=== PATIENT | female | born 1985 | race Caucasian/White ===

== ENCOUNTER 2024-08-26 19:54 | Inpatient (IN) | payer BC, SELFPAY ==
[~2024-08-26 19:54] MED LIST: Bupivacaine 0.25% HCL 30 ML VIAL ONE
[2024-08-26] MEDS ORDERED: Methylergonovine 0.2 MG/ML VIAL IM PRN (20:16)
[2024-08-26] MEDS ORDERED: Lidocaine 1% (PF) 30 ML VIAL SC PRN (20:16)
[2024-08-26] MEDS ORDERED: Oxytocin 30 units/NS 500 ML 500 ML IV SCH (20:16)
[2024-08-26] MEDS ORDERED: Tranexamic Acid 1,000 MG/10 ML VIAL IVP PRN (20:16)
[2024-08-26] MEDS ORDERED: Acetaminophen 500 MG TAB PO PRN (20:16)
[2024-08-26] MEDS ORDERED: HYDROcodone/Acetaminophen 5/325 mg Tablet PO PRN ×2 (20:16)
[2024-08-26] MEDS ORDERED: Lactated Ringer's 1,000 ML IV SCH (20:16)
[2024-08-26] MEDS ORDERED: Carboprost 250 MCG/ML AMP IM PRN (20:16)
[2024-08-26] MEDS ORDERED: hydrALAZINE 20 MG/ML VIAL SLOW IVP PRN (20:16)
[2024-08-26] MEDS ORDERED: Misoprostol 200 MCG TAB PR PRN (20:16)
[2024-08-26] MEDS ORDERED: fentaNYL 50 mcg/mL 1 mL Vial SLOW IVP PRN (20:16)
[2024-08-26] MEDS ORDERED: Diphenoxylate HCl/Atropine Tablet PO PRN ×2 (20:16)
[2024-08-26] MEDS ORDERED: Ondansetron PF 4 MG/2 ML Vial IVP PRN (20:16)
[2024-08-26] MEDS ORDERED: Promethazine HCl 25 MG/ML VIAL IM PRN (20:16)
[2024-08-26 20:19] VITALS: BMI 34.3
[2024-08-26 20:52] LABS: Hematocrit 35.7 % (34.9-44.5); Hemoglobin 12.9 g/dL (12.0-15.5); Mean Corpuscular HGB CONC 36.1 g/dL (32.0-36.0); Mean Corpuscular Hemoglobin 34.5 pg (27.0-33.0); Mean Corpuscular Volume 95.5 fL (81.6-98.3); Mean Platelet Volume 12.3 fL (7.4-10.4); Platelet Count 109 10x3/uL (150-450); RBC Distribution Width 13.3 % (11.5-14.5); Red Blood Cell (RBC) Count 3.74 10x6/uL (3.90-5.03); White Blood Cell (WBC) Count 8.7 10x3/uL (3.5-10.5)
[2024-08-26] MEDS: Misoprostol 100 MCG TAB VAG SCH (21:32)
[2024-08-26 22:51] LABS: Syphilis Antibody Nonreactive (Nonreactive); Syphilis Antibody Index 0.05 S/CO (<1.00 Non-Reactive)
[2024-08-26 22:52] LABS: HBsAg Index 0.22 S/CO (0-0.99); Hep B Surf Ag - L&D Non-Reactive S/CO (NonReactive)
[2024-08-26] MEDS: Calcium Carbonate 500 MG ChewTAB PO SCH (23:28)
[2024-08-27] MEDS: fentaNYL/Ropivacaine Epidural 100 ML ONE (02:35)
[2024-08-27] MEDS ORDERED: Naloxone HCl 0.4 mg/ml Vial IVP PRN ×4 (02:56→10:51)
[2024-08-27] MEDS ORDERED: Ondansetron PF 4 MG/2 ML Vial IVP PRN ×3 (02:56→10:51)
[2024-08-27] MEDS ORDERED: Acetaminophen 325 MG TAB PO PRN (02:56)
[2024-08-27] MEDS ORDERED: Promethazine HCl 25 MG/ML VIAL IM PRN ×2 (02:56→10:51)
[2024-08-27] MEDS ORDERED: Lactated Ringer's 500 ML IV PRN (02:56)
[2024-08-27] MEDS ORDERED: Moisturizing Cream (Eucerin) 113 GM JAR TOP PRN ×2 (02:56→10:51)
[2024-08-27] MEDS ORDERED: diphenhydrAMINE 50 MG/ML VIAL IVP PRN ×2 (02:56→10:51)
[2024-08-27] MEDS ORDERED: fentaNYL 2 mcg/Ropivacaine 0.2% Epidural 100 ML CADD EPIDURAL SCH (03:00)
[2024-08-27] MEDS ORDERED: Communication Order-Pharmacy FS SCH ×2 (03:00→11:00)
[2024-08-27] MEDS: Oxytocin 30 units/NS 500 ML 500 ML IV SCH (06:46)
[2024-08-27] MEDS ORDERED: Lanolin Ointment 7 GM TUBE TOP PRN (10:04)
[2024-08-27] MEDS ORDERED: Bisacodyl 10 MG SUPP PR PRN (10:04)
[2024-08-27] MEDS ORDERED: HYDROmorphone 0.5 MG/0.5 ML SYRINGE SLOW IVP PRN (10:51)
[2024-08-27] MEDS ORDERED: Meperidine HCl/PF 25 MG (1 mL) VIAL SLOW IVP PRN (10:51)
[2024-08-27] MEDS ORDERED: fentaNYL 50 mcg/mL 1 mL Vial SLOW IVP PRN (10:51)
[2024-08-27] MEDS: ePHEDrine Sulfate 50 MG/10 ML VIAL SLOW IVP PRN (11:52)
[2024-08-27] MEDS: Clindamycin/D5W 900 mg/50 ml Premix Bag ONE (15:19)
[2024-08-27] MEDS: Azithromycin 500 MG VIAL ONE (15:19)
[2024-08-27] MEDS: CEFAZOLIN 2 GM VIAL ONE (15:19)
[2024-08-27] MEDS: Hepatitis B Vaccine 10 MCG/0.5 ML SYR ONE (15:20)
[2024-08-27] MEDS: Erythromycin Base 0.5% Oint 1 GM TUBE ONE (15:20)
[2024-08-27] MEDS: Morphine PF 10 MG/10 ML VIAL ONE (15:20)
[2024-08-27] MEDS: Dexmedetomidine 200 MCG/2 ML VIAL ONE (15:20)
[2024-08-27] MEDS: Ondansetron PF 4 MG/2 ML Vial ONE (15:20)
[2024-08-27] MEDS: PHENYLEPHRINE-NS 100 MCG/ML 10 ML SYRINGE ONE (15:20)
[2024-08-27] MEDS: Oxytocin 10 UNITS/ML VIAL ONE ×2 (15:20)
[2024-08-27] MEDS: Phytonadione Neonatal 1 MG/0.5 ML AMP ONE (15:21)
[2024-08-27] MEDS: Ferrous Sulfate 325 MG TAB PO SCH (21:16)
[2024-08-27] MEDS: HYDROcodone/Acetaminophen 7.5/325 mg Tablet PO PRN (21:16)
[2024-08-27] MEDS: Docusate 100 MG CAP PO SCH (21:16)
[2024-08-28] MEDS: Simethicone Chewable 80 MG TAB PO PRN (03:21)
[2024-08-28 04:11] LABS: Hematocrit 27.2 % (34.9-44.5); Mean Corpuscular HGB CONC 33.1 g/dL (32.0-36.0); Mean Corpuscular Hemoglobin 32.3 pg (27.0-33.0); Mean Corpuscular Volume 97.5 fL (81.6-98.3); RBC Distribution Width 13.5 % (11.5-14.5); Red Blood Cell (RBC) Count 2.79 10x6/uL (3.90-5.03); White Blood Cell (WBC) Count 10.8 10x3/uL (3.5-10.5)
[2024-08-28 04:15] LABS: Mean Platelet Volume 11.8 fL (7.4-10.4); Platelet Count 73 10x3/uL (150-450)
[2024-08-28] MEDS: Naloxone HCl 0.4 mg/ml Vial IV PRN (09:22)
[2024-08-28] MEDS: Boostrix 0.5 ML (Tdap) VIAL (>/=7 yrs of age) IM ONE (10:51)
[2024-08-28] MEDS: Gentamicin Sulfate 80 MG in Premix 1 BAG IVPB SCH (14:06)
[2024-08-28 14:33] LABS: #Basophils 0.03 10x3/uL (0.0-0.2); #Eosinophils 0.05 10x3/uL (0.0-0.5); #Monocytes 0.89 10x3/uL (0.0-1.1); %Basophils 0.2 % (0.0-2.0); %Eosinophils 0.3 % (0.0-6.0); %Lymphocytes 5.8 % (18.0-47.0); %Monocytes 5.2 % (0.0-10.0); %Neutrophils 87.7 % (40.0-75.0); Hematocrit 30.1 % (34.9-44.5); Hemoglobin 10.5 g/dL (12.0-15.5); Mean Corpuscular HGB CONC 34.9 g/dL (32.0-36.0); Mean Corpuscular Hemoglobin 34.1 pg (27.0-33.0); Mean Corpuscular Volume 97.7 fL (81.6-98.3); Mean Platelet Volume 11.8 fL (7.4-10.4); Platelet Count 111 10x3/uL (150-450); RBC Distribution Width 13.8 % (11.5-14.5); Red Blood Cell (RBC) Count 3.08 10x6/uL (3.90-5.03)
[2024-08-28] MEDS: Clindamycin/D5W 900 MG in Premix 1 BAG IVPB SCH (14:59)
[2024-08-29] MEDS: Lactated Ringer's 1,000 ML IV SCH ×2 (06:45→19:45)
[2024-08-29 08:28] LABS: #Basophils 0.03 10x3/uL (0.0-0.2); #Eosinophils 0.22 10x3/uL (0.0-0.5); #Monocytes 0.78 10x3/uL (0.0-1.1); #Neutrophils 11.48 10x3/uL (1.5-8.4); %Basophils 0.2 % (0.0-2.0); %Eosinophils 1.6 % (0.0-6.0); %Lymphocytes 6.6 % (18.0-47.0); %Monocytes 5.7 % (0.0-10.0); %Neutrophils 84.6 % (40.0-75.0); Hematocrit 25.9 % (34.9-44.5); Hemoglobin 8.9 g/dL (12.0-15.5); Mean Corpuscular HGB CONC 34.4 g/dL (32.0-36.0); Mean Corpuscular Volume 98.9 fL (81.6-98.3); Mean Platelet Volume 11.4 fL (7.4-10.4); Platelet Count 98 10x3/uL (150-450); RBC Distribution Width 13.9 % (11.5-14.5); Red Blood Cell (RBC) Count 2.62 10x6/uL (3.90-5.03); White Blood Cell (WBC) Count 13.6 10x3/uL (3.5-10.5)
[2024-08-29 08:32] LABS: Platelet Adequacy Comment Appears Decreased
[2024-08-29] MEDS: Ferrous Sulfate 325 MG TAB PO SCH (09:12)
[2024-08-30 05:38] LABS: #Basophils 0.04 10x3/uL (0.0-0.2); #Monocytes 0.62 10x3/uL (0.0-1.1); #Neutrophils 10.74 10x3/uL (1.5-8.4); %Basophils 0.3 % (0.0-2.0); %Monocytes 4.7 % (0.0-10.0); %Neutrophils 81.6 % (40.0-75.0); Hematocrit 28.4 % (34.9-44.5); Hemoglobin 9.4 g/dL (12.0-15.5); Mean Corpuscular HGB CONC 33.1 g/dL (32.0-36.0); Mean Corpuscular Hemoglobin 32.4 pg (27.0-33.0); Mean Corpuscular Volume 97.9 fL (81.6-98.3); Mean Platelet Volume 10.8 fL (7.4-10.4); Platelet Count 136 10x3/uL (150-450); RBC Distribution Width 13.4 % (11.5-14.5); White Blood Cell (WBC) Count 13.2 10x3/uL (3.5-10.5)
[2024-08-30 11:43] VITALS: TEMP 98
[2024-08-30 20:39] VITALS: BP 128/76
== END 2024-08-30 22:15 | disposition home or self-care (01) | DRG 786 ==
LOC: CSHLD 19:54 → CSHPP 08-27 13:30
PROVIDERS: ADMIT Obstetrics & Gynecology; ATTEND Obstetrics & Gynecology
PROC: 10D00Z1 Extraction of Products of Conception, Low, Open Approach (ICD-10-PCS; principal; 2024-08-26)
PROC: 0UQGXZZ Repair Vagina, External Approach (ICD-10-PCS; 2024-08-26)
PROC: 3E033XZ Introduction of Vasopressor into Peripheral Vein, Percutaneous Approach (ICD-10-PCS; 2024-08-26)
DX: O32.9XX0 Maternal care for malpresentation of fetus, unspecified, not applicable or unspecified (principal); M31.19 Other thrombotic microangiopathy; O71.4 Obstetric high vaginal laceration alone; O86.12 Endometritis following delivery; O34.13 Maternal care for benign tumor of corpus uteri, third trimester; D25.9 Leiomyoma of uterus, unspecified; O33.9 Maternal care for disproportion, unspecified; Z37.0 Single live birth; Z3A.39 39 weeks gestation of pregnancy
CPT/HCPCS: 36415; 51702; 85025; 85027; 86780; 86850; 86900; 86901; 87086; 87340; J0665; J1580; J2274; J2310; J2405; J2590; J3490; J7120